=== PATIENT | male | born 1985 | race American Indian/Alaskan Native ===

== ENCOUNTER 2021-08-25 10:46 | Emergency (ER) | payer SELFPAY ==
[2021-08-25 10:53] VITALS: BP 138/80
[2021-08-25] MEDS ORDERED: ASPIRIN 325 MG TAB PO ONE (11:04)
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
[2021-08-25 12:01] LABS: Basophils # (Auto) 0.1 K/mm3 (0.0-0.1); Basophils % (Auto) 0.8 % (0.0-1.8); Eosinophils # (Auto) 0.2 K/mm3 (0.0-0.4); Eosinophils % (Auto) 3.3 % (0.0-4.3); Hematocrit 38.5 % (35.5-45.6); Hemoglobin 12.9 gm/dl (11.8-15.2); Lymphocytes # (Auto) 2.6 K/mm3 (1.2-5.4); Mean Corpuscular HGB Conc 34 % (32-34); Mean Corpuscular Volume 91 fl (84-94); Monocytes # (Auto) 0.8 K/mm3 (0.0-0.8); Monocytes % (Auto) 11.6 % (0.0-7.3); Platelet Count 286 K/mm3 (140-440); Red Blood Count 4.23 M/mm3 (3.65-5.03); Red Cell Distribution Width 13.1 % (13.2-15.2)
[2021-08-25 12:34] LABS: Alanine Aminotransferase 34 units/L (7-56); Blood Urea Nitrogen 11 mg/dL (9-20); Hemolysis Index 3
[2021-08-25 12:42] LABS: BUN/Creatinine Ratio 18
--- NOTE | 2021-08-26 11:02 | Electrocardiograph Report ---
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
== END 2021-08-25 15:10 | disposition home or self-care (01) ==
LOC: ED 10:46
DX: R07.9 Chest pain, unspecified (principal); M25.562 Pain in left knee; M25.561 Pain in right knee; Z90.49 Acquired absence of other specified parts of digestive tract
CPT/HCPCS: 36415; 71046; 80053; 84484; 85025; 93005; 99283